=== PATIENT | male | born 1975 | race Hispanic/Latino ===

== ENCOUNTER 2018-10-28 18:17 | Emergency (ER) | payer OTHER ==
[2018-10-28] MEDS ORDERED: LIDOCAINE HCL 1% 20 ML VIAL ONE (19:13)
== END 2018-10-28 19:48 | disposition home or self-care (01) ==
LOC: EDH 18:17
DX: L02.413 Cutaneous abscess of right upper limb (principal); J45.909 Unspecified asthma, uncomplicated; Z72.0 Tobacco use
CPT/HCPCS: 10061; 82948

== ENCOUNTER 2018-10-30 17:27 | Emergency (ER) | payer OTHER | END 2018-10-30 18:12 | disposition home or self-care (01) | LOC: EDH 17:27 | DX: Z48.01 Encounter for change or removal of surgical wound dressing (principal); J45.909 Unspecified asthma, uncomplicated; E11.9 Type 2 diabetes mellitus without complications; Z72.0 Tobacco use | CPT/HCPCS: 99281 ==